=== PATIENT | male | born 1995 | race Caucasian/White ===

== ENCOUNTER 2016-10-24 16:44 | Observation (INO) ==
[2016-10-24 17:35] LABS: Basophils % 0.7 %; Eosinophils # 0.1 K/mcL (0.0-0.6); Eosinophils % 2.4 %; Hemoglobin 14.6 g/dL (12.9-16.9); Immature Granulocytes % 0.2 % (0-4); Immature Platelets 2.2 % (1.1-6.1); Lymphocytes # 1.7 K/mcL (0.6-4.6); Lymphocytes % 28.9 %; Mean Corpuscular HGB Conc 33.2 g/dL (31.6-35.5); Mean Corpuscular Hemoglobin 28.2 pg (28.0-33.3); Mean Corpuscular Volume 85.1 fL (83.0-100.0); Mean Platelet Volume 9.6 fL (9.4-12.4); Monocytes # 0.3 K/mcL (0.0-1.3); Monocytes % 5.2 %; Neutrophils # 3.6 K/mcL (1.6-8.9); Platelet Count 242 K/mcL (140-400); Red Blood Count 5.17 M/mcL (4.19-5.50); Red Cell Distribution Width 12.1 % (11.5-14.5); Segmented Neutrophils % 62.6 %
[2016-10-24 17:46] LABS: BUN/Creatinine Ratio 16 (6-26); Blood Urea Nitrogen 13 mg/dL (8-26); Calcium 9.4 mg/dL (8.6-10.8); Carbon Dioxide 24 mEq/L (19-29); Chloride 108 mEq/L (98-109); Glucose 86 mg/dL (70-99); Osmolality,Calculated 293 (280-300); Potassium 3.7 mEq/L (3.5-4.5); Sodium 142 mEq/L (136-145); eGFR For African Americans > 60 (> 60); eGFR For Non-African Americans > 60 (> 60)
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
[2016-10-24] MEDS ORDERED: Naloxone 0.4 MG/ML INJ IVP PRN (20:25)
[2016-10-24] MEDS ORDERED: Acetaminophen 325 MG TABLET PO PRN (20:25)
[2016-10-24] MEDS ORDERED: Ondansetron 4 MG/2 ML VIAL IVP PRN (20:25)
[2016-10-24] MEDS ORDERED: Nitroglycerin 0.4 MG TAB.SUBL SL PRN (21:13)
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
--- NOTE | 2016-10-25 09:31 | Exercise Stress Test ---
Exercise Stress Name: Anshul Mack Date of Study: 10/25/2016 Date: 1995 Ht: 67.0in Medical Record#: [id number] Age: 21 Wt: 170.0lb Gender: Male BSA: 1.89 Order #: [id number] Location: [facility] Room #: 3b38 Reading Physician: Valerie Olivo DO Technologist: Jaime Salguero CRT Supervising Provider: Temo Razo CNP Primary Physician: None Ordering Physician: Bria Lenz CNP Indication: bradycardia Impressions: Stress ECG was negative for ischemia. Exercise capacity was good. Normal hemodynamic response to exercise. No arrhythmias noted with stress. Patient had chest pain prior to and during testing without change. Findings: Baseline ECG demonstrates NSR, HR 72 bpm with probable early repolarization. Stress ECG is negative for ischemia. No arrhythmias noted during exercise or recovery. The patient demonstrated a normal blood pressure response. The exercise capacity was good. Patient described 9/10 chest pain prior to start of study without change during the study. History: Family Histor Family Histor Stress Test Summary: Stress Test Type: Treadmill Baseline Information: Maximum Predicted HR: 198 85% MPHR: 168 Blood Pressure: 110 / 68 Stress Information: Total Exercise Time: 10 05 Test Terminated Due To: Leg discomfort Maximum Blood Pressure: 138 / 78 Maximum Heart Rate: 168 Percent Maximum Heart Rate Achieved: 85 Double Product: 72149 METS Reached: 12.8 Symptoms: Chest pain stayed same as prior to test Updated by Valerie Olivo on 10/25/2016 9:23:03 AM electronically signed on 10/25/2016 9:24:14 AM with status of Final
--- NOTE | 2016-10-25 10:10 | Electrocardiograph Report ---
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
[2016-10-25 15:29] VITALS: BP 94/72
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
== END 2016-10-25 15:50 | disposition left against medical advice (07) ==
LOC: 3BNU 16:44 → EMEROO 16:44 → 3BNU 20:28
PROVIDERS: ADMIT Registered Nurse; ATTEND Registered Nurse